=== PATIENT | female | born 2005 | race Two or more races ===

== ENCOUNTER 2025-06-13 15:53 | Emergency (ER) | payer OTHER, SELFPAY ==
[~2025-06-13] VITALS: Ht 157.5 cm; Wt 48.0 kg
[2025-06-13 15:55] VITALS: TEMP 98.3
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
[2025-06-13 17:07] VITALS: BP 121/80; PULSE 88; RESP 18; O2SAT 98
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
[2025-06-13] MEDS ORDERED: METH-1181 PO (17:22)
[2025-06-13] MEDS ORDERED: NAPR-746 PO (17:22)
== END 2025-06-13 17:28 | disposition home or self-care (01) ==
LOC: ER 15:53
DX: M54.2 Cervicalgia (principal); Z79.899 Other long term (current) drug therapy; V89.2XXA Person injured in unspecified motor-vehicle accident, traffic, initial encounter; Y93.89 Activity, other specified; Y92.488 Other paved roadways as the place of occurrence of the external cause; Y99.8 Other external cause status
CPT/HCPCS: 72040